=== PATIENT | male | born 1965 | race Caucasian/White ===

== ENCOUNTER 2021-08-21 05:37 | Observation (INO) | payer BC, OTHER ==
[2021-08-21 06:31] LABS: Basophils # (A) 0.1 k/uL (0-0.2); Basophils % (A) 1 %; Eosinophils # (A) 0.3 k/uL (0-0.7); Eosinophils % (A) 2 %; HGB 15.7 gm/dL (13.0-17.5); Lymphocytes # (A) 2.4 k/uL (1.0-4.8); Lymphocytes % (A) 17 %; MCH 31.3 pg (25.0-35.0); MCHC 34.2 g/dL (31.0-37.0); MCV 91.5 fL (80.0-100.0); Mean Platelet Volume 8.9; Monocytes # (A) 0.8 k/uL (0-1.0); Monocytes % (A) 5 %; Neutrophils # (A) 10.7 k/uL (1.3-7.7); Neutrophils % (A) 74 %; Platelet Count 260 k/uL (150-450); RBC 5.03 m/uL (4.30-5.90); RDW 12.2 % (11.5-15.5); WBC 14.4 k/uL (3.8-10.6)
[2021-08-21] MEDS ORDERED: SODIUM CHLORIDE 0.9% 1,000 ML IV STA (06:33)
[2021-08-21 06:36] LABS: African American GFR (CKD) >90 (>60 ml/min/1.73 sqM); Anion Gap 14 mmol/L; Blood Urea Nitrogen 18 mg/dL (9-20); Carbon Dioxide 25 mmol/L (22-30); Chloride 93 mmol/L (98-107); Glucose 197 mg/dL (74-99); Non-African American GFR(CKD) >90 (>60 ml/min/1.73 sqM); Potassium 3.1 mmol/L (3.5-5.1); Sodium 132 mmol/L (137-145)
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
[2021-08-21 06:41] LABS: Appearance,Urine Clear (Clear); Bilirubin,Urine Negative (Negative); Blood,Urine Negative (Negative); Color,Urine Yellow; Glucose,Urine (UA) Negative (Negative); Ketones,Urine Negative (Negative); Leukocyte Esterase,Urine Negative (Negative); Nitrite,Urine Negative (Negative); Protein,Urine Trace (Negative); Specific Gravity,Urine 1.019 (1.001-1.035)
--- NOTE | 2021-08-21 06:49 | XR ---
EXAMINATION TYPE: XR chest 2V DATE OF EXAM: 08/21/2021 COMPARISON: 07/28/2010 HISTORY: Syncope TECHNIQUE: 2 views FINDINGS: Heart and mediastinum are normal. Lungs are clear. Diaphragm is normal. Bony thorax appears normal. IMPRESSION: Normal chest. No adverse change..
[2021-08-21] MEDS ORDERED: POTASSIUM CHLORIDE ER 20 MEQ TAB.ER PO STA ×2 (06:55→17:41)
[2021-08-21] MEDS ORDERED: ASPIRIN 81 MG PO STA (07:49)
[2021-08-21] MEDS ORDERED: CHLORTHALIDONE 25 MG TAB PO SCH (09:00)
[2021-08-21] MEDS: METOPROLOL TARTRATE 50 MG TAB PO SCH ×2 (11:00→11:01)
[2021-08-21] MEDS: ASCORBIC ACID 500 MG TAB PO SCH (11:01)
[2021-08-21] MEDS: traMADol 50 MG TAB PO SCH ×3 (11:01→23:32)
[2021-08-21] MEDS: amLODIPine 10 MG TAB PO SCH (11:02)
[2021-08-21] MEDS ORDERED: SODIUM CHLORIDE 0.9% 1,000 ML IV SCH (17:45)
[2021-08-21] MEDS ORDERED: RX INFO: IV CONTRAST WAS GIVEN 1 EACH MISC MISCELLANE PRN (17:50)
[2021-08-21 18:51] LABS: Basophils # (A) 0.1 k/uL (0-0.2); Basophils % (A) 1 %; Eosinophils # (A) 0.3 k/uL (0-0.7); Eosinophils % (A) 2 %; HCT 45.5 % (39.0-53.0); HGB 15.6 gm/dL (13.0-17.5); Lymphocytes % (A) 30 %; MCH 31.6 pg (25.0-35.0); MCHC 34.1 g/dL (31.0-37.0); MCV 92.4 fL (80.0-100.0); Mean Platelet Volume 9.1; Monocytes # (A) 0.8 k/uL (0-1.0); Monocytes % (A) 6 %; Neutrophils # (A) 7.7 k/uL (1.3-7.7); Neutrophils % (A) 58 %; Platelet Count 238 k/uL (150-450); RBC 4.93 m/uL (4.30-5.90); RDW 12.1 % (11.5-15.5); WBC 13.3 k/uL (3.8-10.6)
[2021-08-21] MEDS: NICOTINE 14MG/24HR PATCH TRANSDERM SCH (19:51)
[2021-08-21 20:51] VITALS: TEMP 98.3
[2021-08-21] MEDS ORDERED: ATORVASTATIN 10 MG TAB PO SCH (21:00)
--- NOTE | 2021-08-21 22:47 | CT ---
EXAMINATION TYPE: CT chest w con DATE OF EXAM: 08/21/2021 COMPARISON: None HISTORY: Dyspnea. CT DLP: 406.1 mGycm Automated exposure control for dose reduction was used. CONTRAST: Performed with IV Contrast, patient injected with 100 mL of Isovue 300. Images obtained from the thoracic inlet to the diaphragm with IV contrast. The lungs are clear of infiltrate. There is no evidence of a pulmonary mass. Heart size is normal. Th ere are no hilar masses. There is no mediastinal adenopathy. Thoracic aorta is intact. There is no an eurysm or dissection. Pulmonary arteries appear normal. No obvious pulmonary embolism. Thoracic spine is intact. Sternum is intact. Upper abdominal soft tissues show a single large calcifi ed 1.3 cm gallstone. IMPRESSION: Negative CT scan of the chest. No suspicious pulmonary mass. Cholelithiasis.
[2021-08-22 04:46] VITALS: RESP 18
--- NOTE | 2021-08-22 06:26 | HP ---
HISTORY AND PHYSICAL 56-year-old white male came to hospital with near syncopal episode. Was found to have elevated white count, hypotension, history of smoking. There is no suspicious pulmonary masses. Lightheaded, dizziness, possible orthostatic changes. He is admitted for dizziness, instability, and possible orthostatic changes. Home medicines include: Lipitor 10 at night, tramadol 50 t.i.d., amlodipine 10 mg daily, chlorthalidone 50 mg daily, metoprolol tartrate 100 b.i.d. ALLERGIES: Negative. REVIEW OF SYMPTOMS: 14 point review of systems negative except for mentioned in HPI. PAST MEDICAL HISTORY: Hypertension, GERD. No surgical history. PHYSICAL EXAMINATION: Temperature 98, pulse 50s to 60s, respiratory 16-18, blood pressure is 118 to 140s over 70s to 80s. Cardiovascular S1, S2. Lungs transmitted upper airway sounds. Mild wheeze. Hematology negative Homans. Psych: Fair mood and affect. GI soft, nontender. LABORATORY DATA: Sodium 132, potassium 3.1. White count 14.4 with elevated neutrophils. ASSESSMENT: 1. Possible viral syndrome. 2. Dehydration. 3. Near syncope. 4. Prognosis guarded. Rehydrate overnight. Possible discharge home in the morning. MMODL / IJN: [id number] /
[2021-08-22 08:16] LABS: Basophils # (A) 0.1 k/uL (0-0.2); Basophils % (A) 1 %; Eosinophils # (A) 0.2 k/uL (0-0.7); Eosinophils % (A) 2 %; HCT 42.8 % (39.0-53.0); HGB 14.5 gm/dL (13.0-17.5); Lymphocytes # (A) 2.5 k/uL (1.0-4.8); Lymphocytes % (A) 26 %; MCH 31.4 pg (25.0-35.0); MCV 92.4 fL (80.0-100.0); Mean Platelet Volume 9.2; Monocytes # (A) 0.5 k/uL (0-1.0); Monocytes % (A) 5 %; Neutrophils # (A) 6.2 k/uL (1.3-7.7); Neutrophils % (A) 65 %; Platelet Count 195 k/uL (150-450); RBC 4.63 m/uL (4.30-5.90); RDW 12.3 % (11.5-15.5); WBC 9.6 k/uL (3.8-10.6)
[2021-08-22] MEDS ORDERED: METOPROLOL TARTRATE 50 MG TAB PO SCH (09:00)
[2021-08-22] MEDS ORDERED: ASPIRIN 325 MG TAB PO SCH (09:00)
[2021-08-22 09:10] LABS: ALT 26 U/L (4-49); AST 29 U/L (17-59); African American GFR (CKD) >90 (>60 ml/min/1.73 sqM); Albumin 3.9 g/dL (3.5-5.0); Alkaline Phosphatase 73 U/L (38-126); Anion Gap 8 mmol/L; Blood Urea Nitrogen 15 mg/dL (9-20); Calcium 9.3 mg/dL (8.4-10.2); Carbon Dioxide 30 mmol/L (22-30); Chloride 99 mmol/L (98-107); Glucose 153 mg/dL (74-99); Non-African American GFR(CKD) >90 (>60 ml/min/1.73 sqM); Potassium 3.2 mmol/L (3.5-5.1); Sodium 137 mmol/L (137-145); Total Bilirubin 0.8 mg/dL (0.2-1.3); Total Protein 6.7 g/dL (6.3-8.2)
[2021-08-22 09:44] VITALS: BP 123/58; PULSE 69
[2021-08-22] MEDS: ASCORBIC ACID 500 MG TAB PO SCH (09:45)
[2021-08-22] MEDS: traMADol 50 MG TAB PO SCH (09:45)
[2021-08-22] MEDS: amLODIPine 10 MG TAB PO SCH (09:45)
[2021-08-22] MEDS: NICOTINE 14MG/24HR PATCH TRANSDERM SCH (09:45)
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
--- NOTE | 2021-08-22 11:58 | ECHOF ---
Referral Reason:near syncope MEASUREMENTS -------- HEIGHT: 182.9 cm WEIGHT: 97.5 kg BP: RVIDd: 3.9 cm (< 3.3) IVSd: 1.0 cm (0.6 - 1.1) LVIDd: 4.3 cm (3.9 - 5.3) LVPWd: 1.0 cm (0.6 - 1.1) IVSs: 1.7 cm LVIDs: 3.0 cm LVPWs: 1.1 cm MV EXCURSION: 19.132 mm (> 18.000) MV EF SLOPE: 96 mm/s (70 - 150) EPSS: 0.3 cm MV E Vic: 0.54 m/s MV DecT: 280 ms MV A Vic: 0.58 m/s MV E/A Ratio: 0.94 RAP: 5.00 mmHg RVSP: 15.73 mmHg FINDINGS -------- Sinus rhythm. This was a technically good study. LV size, wall thickness and systolic function are normal, with an EF greater than 55%. The left priscilla tricular size is normal. The right ventricle is normal in size. The left atrial size is normal. The right atrial size is normal. There is mild aortic valve sclerosis. Mild mitral regurgitation is present. Mild tricuspid regurgitation present. Right ventricular systolic pressure is normal at < 35 mmHg. There is no pulmonic regurgitation present. There is no pericardial effusion. CONCLUSIONS -------- 1. LV size, wall thickness and systolic function are normal, with an EF greater than 55%. 2. The left ventricular size is normal. 3. The right ventricle is normal in size. 4. The left atrial size is normal. 5. The right atrial size is normal. 6. There is mild aortic valve sclerosis. 7. Mild mitral regurgitation is present. 8. Mild tricuspid regurgitation present. 9. There is no pericardial effusion. HYDRO ELECTRIC STATION OPERATOR: Miladis Peck RDCS
[2021-08-22 19:15] LABS: Chol/HDL Ratio 3.79 Ratio; LDL Cholesterol,Calculated 35.3 mg/dL (0.0-131.0)
[2021-08-23] MEDS ORDERED: POTASSIUM CHLORIDE ER 20 MEQ TAB.ER PO SCH (09:00)
== END 2021-08-22 13:54 | disposition home or self-care (01) ==
LOC: EC 05:37 → 1SOBS 07:56 → 6NMEDSUR 13:08 → 1SOBS 18:21
PROVIDERS: ADMIT Family Medicine; ATTEND Family Medicine
DX: R55 Syncope and collapse (principal); I95.9 Hypotension, unspecified; D72.829 Elevated white blood cell count, unspecified; I10 Essential (primary) hypertension; K21.9 Gastro-esophageal reflux disease without esophagitis; E86.0 Dehydration; E87.6 Hypokalemia; E78.5 Hyperlipidemia, unspecified; R61 Generalized hyperhidrosis; R73.03 Prediabetes; R00.1 Bradycardia, unspecified; F17.210 Nicotine dependence, cigarettes, uncomplicated; Z20.822 Contact with and (suspected) exposure to COVID-19; Z79.899 Other long term (current) drug therapy; Z79.891 Long term (current) use of opiate analgesic; Z87.828 Personal history of other (healed) physical injury and trauma; Z80.8 Family history of malignant neoplasm of other organs or systems
CPT/HCPCS: 96360; 96361; 99285; 36415; 93005; 93306; 93270; 80061; 80053; 80048; 84443; 84484; 85025 ×2; 81003; 83036; 87635; 71046; 71260; G0378 ×3; S4990 ×2; Q9967

== ENCOUNTER → 2021-11-07 | Outpatient (CLI) | payer OTHER ==
--- NOTE | 2021-11-07 12:24 | CT ---
EXAMINATION TYPE: CT soft tissue neck wo con DATE OF EXAM: 11/07/2021 HISTORY: Hypertrophy of salivary gland. Mass on right side of neck marked by BB. COMPARISON: 07/28/2010 CT DLP: 660 mGycm. Automated Exposure Control for Dose Reduction was Utilized. TECHNIQUE: CT scan of the neck is performed without and with IV Contrast, lack of contrast significa ntly limits the exam. FINDINGS: Orbits are symmetric. Nasopharynx and oropharynx symmetric. Parotid glands are symmetric. T here is atherosclerotic change of the visualized vasculature. There appears to be enlargement of the right submandibular gland with multiple large calcifications. There also is pathologic adenopathy in the right carotid space measuring a short axis of 1 cm. Hypertrophic and degenerative change of the spine. Base of the tongue is symmetric. Vocal cords carmela l. Calcification and nodularity involving the thyroid gland on the left. IMPRESSION: 1. The right submandibular gland appears to be enlarged with some calcification. On approximate 4 lar ge calcifications are seen potentially within the duct or the gland itself. Correlate for sialoadenit is. Underlying mass is not entirely excluded by noncontrast technique. There is adenopathy in the rig ht carotid space as discussed above. 2. Multinodular thyroid changes. Correlate with ultrasound as clinically warranted.
== END | disposition home or self-care (01) ==
LOC: RADCTMAIN 11:39
PROVIDERS: ATTEND Family Medicine
DX: R59.0 Localized enlarged lymph nodes (principal)
CPT/HCPCS: 70490

== ENCOUNTER → 2021-12-27 | Outpatient (CLI) | payer OTHER ==
--- NOTE | 2021-12-28 12:01 | US ---
EXAMINATION TYPE: US thyroid st tissue head/neck DATE OF EXAM: 12/27/2021 COMPARISON: CT CLINICAL HISTORY: E04.9 THYROID GOITER. Thyroid goiter. GLAND SIZE: Right Lobe: 4.9 x 2.1 x 2.1 cm Overall Parenchyma: heterogenous Left Lobe: 5.4 x 2.1 x 2.1 cm Overall Parenchyma: heterogeneous Isthmus Thickness: 0.34 cm NODULES RIGHT: # of nodules measured on right: 1 1. 0.1 X 0.2 x 0.1 cm, lower, hyperechoic nodule, which is wider than tall. Appears calcified. Prior size: No prior. LEFT: # of nodules measured on left: 1 1. 1.3 X 1.0 x 1.2 cm, upper, solid or almost completely solid, isoechoic nodule, which is wider th an tall, with smooth margins, without echogenic foci. TR 3 Prior size: No prior. ISTHMUS: # of nodules measured in the isthmus: 0 Bilateral neck scanned. Hypoechoic area with hyperechoic center seen within the right submandibular area: 2.6 x 1.9 x 0.8 cm. Hypoechoic area with hyperechoic center seen within the left neck: 2.5 x 2.1 x 0.8 cm. IMPRESSION: Mildly suspicious nodule right lobe thyroid. Follow-up exam in one year can be considered. 2017 ACR TI-RADS LEVEL: *Highest TI-RADS level nodule reported
== END | disposition home or self-care (01) ==
LOC: RADUSWWP 16:42
PROVIDERS: ATTEND Family Medicine
DX: E04.1 Nontoxic single thyroid nodule (principal)
CPT/HCPCS: 76536

== ENCOUNTER 2022-02-21 08:47 | Day surgery (SDC) | payer OTHER ==
[2022-02-21 09:53] VITALS: RESP 18; TEMP 98.3
[2022-02-21 10:42] VITALS: BP 110/68; PULSE 72
--- NOTE | 2022-02-21 12:29 | US ---
ULTRASOUND GUIDED FNA THYROID BIOPSY: CLINICAL HISTORY: Left thyroid nodule FINDINGS: The procedure was explained to the patient. The risks, complications, benefits and alternatives were discussed and any questions were answered. Informed consent was obtained. Patient was placed supin e on the ultrasound table and prepped and draped in the usual sterile fashion. Utilizing a 25 gauge needle, five passes were made into the requested left thyroid nodule. Patient was stable throughout the procedure. Pathology is pending. All elements of maximal barrier technique were utilized. IMPRESSION: 1. Successful ultrasound guided FNA thyroid biopsy.
== END 2022-02-21 10:35 | disposition home or self-care (01) ==
LOC: RADPROMAIN 08:47
PROVIDERS: ATTEND Family Medicine
DX: E04.9 Nontoxic goiter, unspecified (principal)
CPT/HCPCS: 10005; 88173; 88305

== ENCOUNTER → 2025-01-11 | Outpatient (CLI) | payer BC ==
[2025-01-12 02:49] LABS: Basophils # (A) 0.09 X 10*3/uL (0.00-0.10); Basophils % (A) 0.9 %; Eosinophils # (A) 0.22 X 10*3/uL (0.04-0.35); Eosinophils % (A) 2.3 %; HCT 45.1 % (39.6-50.0); HGB 15.1 g/dL (13.0-17.0); Lymphocytes % (A) 32.4 %; MCH 31.4 pg (27.0-32.0); MCHC 33.5 g/dL (32.0-37.0); MCV 93.8 FL (80.0-97.0); Mean Platelet Volume 11.6 FL (9.5-12.2); Monocytes # (A) 0.71 X 10*3/uL (0.20-1.00); Monocytes % (A) 7.4 %; NRBC Per 100 WBC 0 X 10*3/uL (0.00-0.01); Neutrophils # (A) 5.37 X 10*3/uL (1.80-7.70); Neutrophils % (A) 56.3 %; Platelet Count 138 X 10*3/uL (140-440); RBC 4.81 X 10*6/uL (4.40-5.60); RDW 12.3 % (11.5-14.5); WBC 9.56 X 10*3/uL (4.50-10.00)
[2025-01-12 03:20] LABS: Chol/HDL Ratio 3.71 Ratio
[2025-01-12 03:21] LABS: ALT 17 U/L (10-49); AST 18 U/L (14-35); Albumin 4.5 g/dL (3.8-4.9); Albumin/Globulin Ratio 1.88 Ratio (1.60-3.17); Alkaline Phosphatase 70 U/L (41-126); BUN/Creat Ratio 12.75 Ratio (12.00-20.00); Blood Urea Nitrogen 10.2 mg/dL (9.0-27.0); Calcium 9.2 mg/dL (8.7-10.3); Carbon Dioxide 25.9 mmol/L (21.6-31.8); Chloride 104 mmol/L (96-109); Globulin 2.4 g/dL (1.6-3.3); Glucose 104 mg/dL (70-110); LDL Cholesterol,Calculated 79.3 mg/dL (0.0-131.0); Potassium 4.1 mmol/L (3.5-5.5); Prostate Specific Antigen 0.42 ng/mL (0.000-3.500); Rheumatoid Factor, Qnt <15 IU/mL (0-15); Sodium 141 mmol/L (135-145); Total Bilirubin 0.5 mg/dL (0.3-1.2); Total Protein 6.9 g/dL (6.2-8.2)
== END | disposition home or self-care (01) ==
LOC: LABWHC1 16:28
PROVIDERS: ATTEND Family Medicine
DX: Z00.00 Encounter for general adult medical examination without abnormal findings (principal); I10 Essential (primary) hypertension; B89 Unspecified parasitic disease; Z79.899 Other long term (current) drug therapy
CPT/HCPCS: 36415; 80053; 80061; 83036; 84153; 84443; 85025; 86038; 86431